=== PATIENT | female | born 1970 | race Caucasian/White ===

== ENCOUNTER 2017-09-12 18:28 | Emergency (ER) | payer OTHER ==
[~2017-09-12] VITALS: Ht 165.1 cm; Wt 99.0 kg
[2017-09-12 18:32] VITALS: TEMP 36.4; Ht 165.1 cm; Wt 99.0 kg
--- NOTE | 2017-09-12 18:58 | EMERGENCY ROOM VISIT NOTE ---
History Report prepared by Courtney: Jesus Silverman Under the Supervision of: Dr. Louie Lopez M.D. First contact with patient: 18:36 Chief Complaint: FALL Stated Complaint: FALL ON 09/07/17, R BACK HEAD,VERTIGO,DIZZINESS,PEREZ History of Present Illness The patient is a 47 year old white female with past medical history of endometrial cancer, with partial hysterectomy as well as appendectomy, cholecystectomy, lumbar spine surgery, gastric bypass and various cosmetic surgeries who presents to the Emergency Room with complaints of dizziness/ migraines that began following a traumatic fall 5 days ago. The patient states that she slipped and fell on the ice 5 days ago. She fell backward and hit the back-right portion of her head on the ground. She is now complaining of persistent migraine, vertigo, and dizziness. She has a history of migraines and vertigo chronically. She is also complaining of pain in her neck. She has had a cervical fusion surgery in the past. Source of History: patient Onset: 5 days SYSTEM ADMINISTRATOR Position: head Quality: other (migraine/dizziness) Timing: other (Persistent) Associated Symptoms: + neck pain Review of Systems See HPI for pertinent positives and negatives. A total of ten systems were reviewed and were otherwise negative. Past Medical & Surgical Surgical Problems: (1) History of appendectomy (2) Hx of cholecystectomy Family History Cancer Diabetes mellitus FHx: gallbladder disease Heart disease Hypertension Lung disease Social History Smoking Status: Former Smoker Alcohol Use: occasionally Housing Status: lives with family Occupation Status: employed Current/Historical Medications Scheduled Alprazolam (Xanax), 0.5 MG PO BID Bupropion (Wellbutrin Sr), 150 MG PO BID Cyanocobalamin (Vitamin B-12), 1,000 MCG SQ MONTHLY Epinephrine (Epipen), 0.3 MG IM UD Ergocalciferol (Vitamin D 55177 Unit), 50,000 UNIT PO WK Levothyroxine Sodium (Synthroid), 25 MCG PO DAILY Sertraline (Zoloft), 100 MG PO HS Trazodone Hcl (Trazodone), 200 MG PO HS Scheduled PRN Albuterol Hfa (Ventolin Hfa), 2 PUFFS INH Q4 PRN for Wheezing Clindamycin Phosphate (Topical (Cleocin-T), 1 APPLN TOP BID PRN for Cyclobenzaprine Hcl (Flexeril), 5-10 MG PO TID PRN for Muscle Spasms Tramadol (Ultram), 50 MG PO Q6 PRN for Pain Physical Exam Vital Signs Date Time Temp Pulse Resp B/P (MAP) Pulse Ox O2 Delivery O2 Flow Rate FiO2 09/12/17 21:34 70 113/68 96 09/12/17 20:38 70 120/71 95 Room Air 09/12/17 19:17 71 09/12/17 19:10 97 Room Air 09/12/17 18:32 36.4 81 17 136/82 98 Room Air Physical Exam GENERAL: Awake, alert, well-appearing, NAD HENT: Normocephalic, atraumatic. There is mild right occipital TTP without any depressions or lacerations. EYES: Normal conjunctiva. Sclera non-icteric. NECK: Supple. No nuchal rigidity. FROM. No midline c-spine TTP. RESPIRATORY: CTAB, no rhonchi, wheezing, crackles CARDIAC: RRR, no MRG ABDOMEN: Soft, NTND, BS+ MSK: No chest wall TTP, no LE edema NEURO: GCS 15, CN 2-12 intact, moves all 4s on command SKIN: No rash or jaundice noted. Medical Decision & Procedures ER Provider Diagnostic Interpretation: Radiology results as stated below per my review and radiologist interpretation: CT SCAN OF THE CERVICAL SPINE CLINICAL HISTORY: Fall several days ago. COMPARISON STUDY: No priors. TECHNIQUE: CT scan of the cervical spine is performed from the skull base to the upper thoracic spine. Images are reviewed in the axial, sagittal, and coronal planes. IV contrast was not administered for this examination. A dose lowering technique was utilized adhering to the principles of ALARA. FINDINGS: Skeletal structures: The skeletal structures are well mineralized. There is no evidence of fracture or subluxation involving the cervical spine. There are postoperative changes from anterior fusion seen at C5-C6. There is near complete bony incorporation at these levels. Vertebral body height and alignment are maintained. There is straightening of cervical lordosis with mild reversal centered at C4. The odontoid process and lateral masses are intact. The atlantoaxial articulation is preserved. The spinous processes appear intact. Intervertebral discs: There is evidence of discectomy at C5-C6. The remaining disc spaces appear maintained. Central canal: Widely patent. Soft tissues: The prevertebral and paraspinous soft tissues are within normal limits. Calvarium: The visualized calvarium at the skull base appears intact. Brain parenchyma: Partially visualized brain parenchyma the skull base is within normal limits. Sinuses and mastoids: A retention cyst is noted in the left maxillary antrum. The mastoid air cells are well pneumatized. Lung apices: Clear as visualized. IMPRESSION: There is no evidence of fracture or subluxation involving the cervical spine. Electronically signed by: Morales Ford M.D. 09/12/2017 8:03 PM Dictated Date/Time: 09/12/2017 7:[address] SCAN OF THE BRAIN WITHOUT IV CONTRAST CLINICAL HISTORY: Fall several days ago. COMPARISON STUDY: No priors. TECHNIQUE: Unenhanced axial CT scan of the brain is performed from the vertex to the skull base. A dose lowering technique was utilized adhering to the principles of ALARA. CT DOSE: 835.38 mGy.cm FINDINGS: Brain parenchyma: The brain parenchyma is normal in appearance. There is no hemorrhage, mass effect, or evidence of acute territorial ischemia by CT criteria. Ma-white matter is preserved. No extra-axial fluid collection is seen. Ventricles, sulci, cisterns: Normal in configuration. Intracranial vasculature: The visualized intracranial vasculature at the skull base is normal in appearance. Calvarium: There is no depressed calvarial fracture. Sinuses and mastoids: The visualized paranasal sinuses are clear. The mastoid air cells are well pneumatized. Orbits: The bony orbits are grossly intact. IMPRESSION: No acute intracranial abnormality. Electronically signed by: Morales Ford M.D. 09/12/2017 8:01 PM Dictated Date/Time: 09/12/2017 8:00 PM Medications Administered Medications (Trade) Dose Ordered Sig/Anu Route Start Time Stop Time Status Last Admin Dose Admin Acetaminophen (Tylenol Tab) 1,000 mg STK-MED ONCE PO 09/12/17 19:30 09/12/17 19:31 DC 09/12/17 19:34 1,000 MG Diphenhydramine HCl (Benadryl Inj) 50 mg STK-MED ONCE .ROUTE 09/12/17 19:30 09/12/17 19:31 DC 09/12/17 19:33 25 MG Metoclopramide HCl (Reglan Inj) 10 mg STK-MED ONCE .ROUTE 09/12/17 19:30 1/17/18 19:31 DC 09/12/17 19:33 10 MG ED Course 1849: The patient was evaluated in room B9. A complete history and physical exam was performed. 2123: I reevaluated the patient. Discussed results and discharge instructions: She verbalized understanding and agreement. The patient is ready for discharge. Medical Decision The patient is a 47 year old white female with past medical history of endometrial cancer, with partial hysterectomy as well as appendectomy, gastric bypass and various cosmetic surgeries who presents to the Emergency Room with complaints of dizziness/migraines that began following a traumatic fall 5 days ago Differential diagnosis; benign positional vertigo, dehydration, hypovolemia, anemia, tumor, infection, hypoglycemia, electrolyte abnormalities, cardiac sources, intracerebral event, toxicologic, neurologic, as well as others were entertained. Patient was seen and evaluated the bedside. Patient was referred from her primary care physician's office status post fall with persistent headache. Patient does not take any blood thinning medications. Patient is otherwise fairly well-appearing. Patient stated they referred here for CT scan. Patient has no overt or focal neurologic deficits. Patient has no midline C-spine tenderness. Given the fact the patient was referred to discuss risks benefits of obtaining a CT as the unlikelihood of a brain bleed are not very likely given the fact that the patient's fall was ground-level, not on blood thinning medications, and several days ago without any neurologic deficits. Nevertheless , as the patient was referred the patient did get a CT of the brain and C- spine. These were negative acute. Patient did receive medications for migraine. Patient felt improved. Patient was deemed suitable for outpatient follow-up and treatment. The patient likely has concussion-like symptoms. Patient was told to follow with her PCP and/or possibly a concussion specialist her headache specialist if her symptoms persist. Patient was given strict follow -up, discharge, and return precautions. All questions were answered. Patient was deemed suitable for outpatient follow-up at this time. Patient agreed with the plan of care and was safely discharged home. The chart was completed utilizing [employer] voice recognition software. Grammatical errors, random word insertions, pronoun errors, and incomplete sentences are an occasional consequence of this system due to software limitations, ambient noise, and hardware issues. Any formal questions or concerns about the content, text, or information contained within the body of this dictation should be directly addressed to the physician for clarification. Blood Pressure Screening Patient's blood pressure: Normal blood pressure Impression Primary Impression: Headache Additional Impressions: Migraine Fall Brain concussion Scribe Attestation The scribe's documentation has been prepared under my direction and personally reviewed by me in its entirety. I confirm that the note above accurately reflects all work, treatment, procedures, and medical decision making performed by me. Departure Information Dispostion Home / Self-Care Referrals No Doctor, Assigned (PCP) [facility] Patient Instructions Concussion Dc, ED Headache Migraine, My [facility] Additional Instructions Please return to the emergency department if you have worsening or recurrent symptoms not amenable to at-home treatment. Please call for a follow-up appointment with her primary care physician. Please take your medications as prescribed. If you have other concerns and/or complaints please feel free to also call your primary care physician's office or return the ED for further evaluation, management, and treatment. Please follow-up with your primary care physician. If you have persistent headache, vertigo, or other concussion like symptoms please follow up with your PCP, headache specialist, and/or concussion specialist which is at [facility]. You may take 600 mg Ibuprofen every 6 hours as needed for pain with food for no more than 2 consecutive days. You may take tylenol 1000 mg every 6 hours as needed for pain. You may take motrin and tylenol separately or at the same time. Take your medications as prescribed. If taking an antibiotic consider taking a probiotic and/or eating yogurt, but at the least, please take with food as it can cause upset stomach. If culture results are not available at discharge, if they are positive for concern of infection, you will be informed of the results as soon as they are available. If you were seen between 11pm and 7AM all radiology reads will be re-read by our in house staff. If any major discrepancies are discovered, you will be notified. You have been examined and treated today on an emergency basis only. This is not a substitute for, or an effort to provide, complete comprehensive medical care. It is impossible to recognize and treat all injuries or illnesses in a single emergency department visit. It is therefore important that you follow up closely with [facility], your PCP, and/or your specialist(s). Call as soon as possible for an appointment. Thank you for your time and consideration. I look forward to speaking with you again soon. Please don't hesitate to call us if you have any questions. Problem Qualifiers Primary Impression: Headache Headache type: unspecified Headache chronicity pattern: acute headache Intractability: not intractable Qualified Codes: R51 - Headache Additional Impressions: Migraine Migraine type: unspecified Status migrainosus presence: without status migrainosus Intractability: not intractable Qualified Codes: G43.909 - Migraine, unspecified, not intractable, without status migrainosus Fall Encounter type: initial encounter Qualified Codes: W19.XXXA - Unspecified fall, initial encounter Brain concussion Encounter type: initial encounter Loss of consciousness presence/duration: without LOC Qualified Codes: S06.0X0A - Concussion without loss of consciousness, initial encounter
[2017-09-12] MEDS ORDERED: DiphenhydrAMINE HCL 50 MG/ML VIAL IV STA (19:00)
[2017-09-12] MEDS ORDERED: METOCLOPRAMIDE HCL INJ 5 MG/ML 2 ML VIAL IV STA (19:00)
[2017-09-12] MEDS ORDERED: ACETAMINOPHEN 500 MG TAB PO STA (19:00)
[2017-09-12 19:10] VITALS: O2SAT 97
[2017-09-12] MEDS ORDERED: METOCLOPRAMIDE HCL INJ 5 MG/ML 2 ML VIAL ONE (19:30)
[2017-09-12] MEDS ORDERED: DiphenhydrAMINE HCL 50 MG/ML VIAL ONE (19:30)
[2017-09-12] MEDS ORDERED: ACETAMINOPHEN 500 MG TAB PO ONE (19:30)
--- NOTE | 2017-09-12 20:02 | DIAGNOSTIC IMAGING REPORT ---
CT SCAN OF THE BRAIN WITHOUT IV CONTRAST CLINICAL HISTORY: Fall several days ago. COMPARISON STUDY: No priors. TECHNIQUE: Unenhanced axial CT scan of the brain is performed from the vertex to the skull base. A dose lowering technique was utilized adhering to the principles of ALARA. CT DOSE: 835.38 mGy.cm FINDINGS: Brain parenchyma: The brain parenchyma is normal in appearance. There is no hemorrhage, mass effect, or evidence of acute territorial ischemia by CT criteria. Ma-white matter is preserved. No extra-axial fluid collection is seen. Ventricles, sulci, cisterns: Normal in configuration. Intracranial vasculature: The visualized intracranial vasculature at the skull base is normal in appearance. Calvarium: There is no depressed calvarial fracture. Sinuses and mastoids: The visualized paranasal sinuses are clear. The mastoid air cells are well pneumatized. Orbits: The bony orbits are grossly intact. IMPRESSION: No acute intracranial abnormality. Electronically signed by: Morales Ford M.D. 09/12/2017 8:01 PM Dictated Date/Time: 09/12/2017 8:00 PM
[2017-09-12] MEDS ORDERED: EPP3/2 IM (20:04)
[2017-09-12] MEDS ORDERED: CLIN1GEL TOP (20:04)
[2017-09-12] MEDS ORDERED: TRAM-10 PO (20:04)
[2017-09-12] MEDS ORDERED: VNTHFA/IN INH (20:04)
[2017-09-12] MEDS ORDERED: ALPR-411 PO (20:04)
[2017-09-12] MEDS ORDERED: CYCL5TAB PO (20:04)
[2017-09-12] MEDS ORDERED: LEVO25TA PO (20:04)
[2017-09-12] MEDS ORDERED: ERGO500037 PO (20:04)
[2017-09-12] MEDS ORDERED: TRAZ100T29 PO (20:04)
[2017-09-12] MEDS ORDERED: SERT-234 PO (20:04)
[2017-09-12] MEDS ORDERED: BUPR-79 PO (20:04)
[2017-09-12] MEDS ORDERED: CYAN100048 SQ (20:04)
--- NOTE | 2017-09-12 20:04 | DIAGNOSTIC IMAGING REPORT ---
CT SCAN OF THE CERVICAL SPINE CLINICAL HISTORY: Fall several days ago. COMPARISON STUDY: No priors. TECHNIQUE: CT scan of the cervical spine is performed from the skull base to the upper thoracic spine. Images are reviewed in the axial, sagittal, and coronal planes. IV contrast was not administered for this examination. A dose lowering technique was utilized adhering to the principles of ALARA. FINDINGS: Skeletal structures: The skeletal structures are well mineralized. There is no evidence of fracture or subluxation involving the cervical spine. There are postoperative changes from anterior fusion seen at C5-C6. There is near complete bony incorporation at these levels. Vertebral body height and alignment are maintained. There is straightening of cervical lordosis with mild reversal centered at C4. The odontoid process and lateral masses are intact. The atlantoaxial articulation is preserved. The spinous processes appear intact. Intervertebral discs: There is evidence of discectomy at C5-C6. The remaining disc spaces appear maintained. Central canal: Widely patent. Soft tissues: The prevertebral and paraspinous soft tissues are within normal limits. Calvarium: The visualized calvarium at the skull base appears intact. Brain parenchyma: Partially visualized brain parenchyma the skull base is within normal limits. Sinuses and mastoids: A retention cyst is noted in the left maxillary antrum. The mastoid air cells are well pneumatized. Lung apices: Clear as visualized. IMPRESSION: There is no evidence of fracture or subluxation involving the cervical spine. Electronically signed by: Morales Ford M.D. 09/12/2017 8:03 PM Dictated Date/Time: 09/12/2017 7:59 PM
[2017-09-12 21:34] VITALS: BP 113/68; PULSE 70; O2SAT 96
== END 2017-09-12 21:36 | disposition home or self-care (01) ==
LOC: C.EDB 18:31
DX: S06.0X0A Concussion without loss of consciousness, initial encounter (principal); R51 Headache; G43.909 Migraine, unspecified, not intractable, without status migrainosus; M54.2 Cervicalgia; R42 Dizziness and giddiness; W00.0XXA Fall on same level due to ice and snow, initial encounter; Z85.44 Personal history of malignant neoplasm of other female genital organs